=== PATIENT | female | born 1990 | race Caucasian/White ===

== ENCOUNTER 2021-01-02 01:53 | Day surgery (SDC) | payer OTHER, SELFPAY ==
[2020-12-31 15:07] VITALS: BMI 31.1
--- NOTE | 2021-01-01 13:26 | WPDANESEPPF ---
Anes - Initial Pre Proc Eval Procedure: Operation Date: 01/02/21 14:00 Proposed Procedures p Bilateral Laparoscopic Salpingectomy - Milad Casanova MD Date/Time: 01/01/21 13:26 Surgeon: Milad Casanova MD Pre Op Diagnosis: desires sterilization Patient Data Age: 30 Gender: F Height: 1.57 m Weight: 77.2 kg Allergies Allergy/AdvReac Type Severity Reaction Status Date / Time Sulfa (Sulfonamide Allergy Intermediate RASH AND Unverified 12/31/20 14:53 Antibiotics) SWELLING Home Medications Medication Instructions Recorded Confirmed Type clonazepam 0.5 mg PO PRN PRN 12/31/20 12/31/20 History lamotrigine 250 mg PO QAM 12/31/20 12/31/20 History trazodone 50 mg PO HS 12/31/20 12/31/20 History venlafaxine 75 mg PO TID 12/31/20 12/31/20 History Patient hx anesthesia problems: none Family hx anesthesia problems: none PMFSH Past Medical History Medical History (Updated 01/02/21 @ 09:49 by Milad Casanova MD) Bacterial vaginosis Bipolar disorder Cluster B personality disorder Depression History of HPV infection Surgical History Surgical History (Updated 01/02/21 @ 09:49 by Milad Casanova MD) History of 12/30/2017139.38 lbs.3 oz.MPrimary [facility]Full [facility] History of tonsillectomy Family History Family History (Updated 01/02/21 @ 09:50 by Milad Casanova MD) Other Depression Heart disease Hypertension Social History Social History (Updated 01/02/21 @ 09:50 by Milad Casanova MD) Smoking status: Never smoker Second hand tobacco smoke exposure: Yes Substance use: current Substance use type: marijuana Last use: 12/24/20 Living arrangements: with family Occupation/Education: occupation Gender identity (if verbalized by the patient): Female Sexual Orientation (if Verbalized by the Patient): Straight or Heterosexual Spiritual care concerns: No Agree to blood products: Yes Anes - Eval Final PreProcedure Day of Procedure 01/01/21 13:26 Patient weight: obese Heart: regular rate and rhythm Lungs: clear to auscultation and normal air movement Airway: Mallampati scale class II Neurological: alert and oriented Last oral intake: >/= 8 hours ASA classification: III Emergent: no Anesthetic plan: proceed Anesthesia type and monitoring: general ETT and standard monitoring Informed Consent: The patient's anesthetic plan and its attendant risks and benefits were discussed with the patient/family/POA. Questions were solicited and answers provided to the satisfaction of the patient/family/POA.
[2021-01-02] VITALS (10 sets, daily range): BP systolic 116–148; BP diastolic 69–85; PULSE 69–86; RESP 14–20; TEMP 36.8–36.9; O2SAT 99–100
--- NOTE | 2021-01-02 09:43 | PM.HPGS ---
History of Present Illness History of Present Illness Consent: Risks, benefits, and alternatives have been discussed and questions answered. Patient agrees to proceed with procedure. Chief complaint: desires sterilization Narrative: Silke Yo is a 30 year old female CF s/p primary C/s on 12/30/17 , history BIPOLAR and cluster b personality and HPV who presents for elective bilateral tubal sterilization laparoscopic bilateral complete salpingectomy under general anesthesia. She understands her condition procedure and risks involved. She understands the tubal sterilization is permanent irreversible she does not desire future fertility she understands the failure rate of 3 to 08/999 with increased risk of ectopic and its sequelae. She understands if she becomes in the future that she should seek emergency medical attention. And she understands the tubal sterilization does not protect her against sexually transmitted disease and continued condom use is recommended. She signed the [place] department of Public aid tubal consent forms and a copy is in the chart. Understands the surgical risks including but not limited to bleeding infection injury to bladder bowel pelvic vessels DVT pneumonia wound infections UTI the risk of anesthesia and she agrees to proceed. Review of Systems Review of Systems: All systems reviewed & are unremarkable except as noted in HPI and below Constitutional: Constitutional: Reports no additional constitutional complaints Eyes: Eyes: Reports no additional eye complaints ENT: Reports system reviewed and no additional complaints, except as documented Cardiovascular: Cardiovascular: Reports no additional cardiovascular complaints Respiratory: Respiratory: Reports no additional respiratory complaints Gastrointestinal: Gastrointestinal: Reports no additional gastrointestinal complaints Genitourinary: Genitourinary: Reports no additional female genitourinary complaints Musculoskeletal: Musculoskeletal: Reports no additional musculoskeletal complaints Integumentary/Breasts: Skin/Breast: Reports system reviewed and no additional complaints, except as docu Neurologic: Reports system reviewed and no additional complaints, except as documented Psychiatric: Psychiatric: Reports no additional psychiatric complaints Endocrine: Endocrine: Reports no additional endocrine complaints Hematologic/Lymphatic: Hematologic/Lymphatic: Reports no additional hematologic/lymphatic complaints Allergic/Immunologic: Allergic/Immunologic: Reports no additional allergic/immunologic complaints [facility] Past Medical History Medical History (Updated 01/02/21 @ 09:49 by Milad Caasnova MD) Bacterial vaginosis Bipolar disorder Cluster B personality disorder Depression History of HPV infection Surgical History Surgical History (Updated 01/02/21 @ 09:49 by Milad Casanova MD) History of 12/30/2017139.38 lbs.3 oz.MPrimary [facility]areanFull [facility]TP History of tonsillectomy Family History Family History (Updated 01/02/21 @ 09:50 by Milad Casanova MD) Other Depression Heart disease Hypertension Social History Social History (Updated 01/02/21 @ 09:50 by Milad Casanova MD) Smoking status: Never smoker Second hand tobacco smoke exposure: Yes Substance use: current Substance use type: marijuana Last use: 12/24/20 Living arrangements: with family Occupation/Education: occupation Gender identity (if verbalized by the patient): Female Sexual Orientation (if Verbalized by the Patient): Straight or Heterosexual Spiritual care concerns: No Agree to blood products: Yes Meds Home Medications and Allergies Home Medications Medication Instructions Recorded Confirmed Type clonazepam 0.5 mg PO PRN PRN 12/31/20 12/31/20 History lamotrigine 250 mg PO QAM 12/31/20 12/31/20 Hist
--- NOTE | 2021-01-02 09:45 | P.HPUP_ITS ---
History and Physical Update Update Date/Time: 01/02/21 09:45 History and Physical has been reviewed, including an updated exam of the patient. There are NO changes in the patient's condition. Risks, benefits, and alternatives have been discussed and questions answered. Patient agrees to proceed with procedure. Silke Yo is a 30 year old female CF s/p primary C/s on 12/30/17 , history BIPOLAR and cluster b personality and HPV who presents for elective b ilateral tubal sterilization laparoscopic bilateral complete salpingectomy under general anesthesia. She understands her condition procedure and risks involved. She understands the tubal sterilization is permanent irreversible she does not desire future fertility she understands the failure rate of 3 to 08/999 with increased risk of ectopic and its sequelae. She understands if she becomes in the future that she should seek emergency medical attention. And she understands the tubal sterilization does not protect her against sexually transmitted disease and continued condom use is recommended. She signed the [place] department of Public aid tubal consent forms and a copy is in the chart. Understands the surgical risks including but not limited to bleeding infection injury to bladder bowel pelvic vessels DVT pneumonia wound infections UTI the risk of anesthesia and she agrees to proceed.
[2021-01-02] MEDS: LACTATED RINGERS 1,000 ML 30 ML IV CONT ×2 (13:42→15:06)
[2021-01-02] MEDS: ACETAMINOPHEN 500 MG TABLET 1000 MG PO (13:42)
[2021-01-02] MEDS: KETOROLAC 15 MG/ML VIAL (*BKC) IV PUSH (13:42)
[2021-01-02] MEDS: ceFAZolin SODIUM 1 GM VIAL 2 GM IV PUSH (14:03)
[2021-01-02] MEDS: BUPIVACAINE HCL 0.25% PF 30 ML VIAL INFILTRATE (14:37)
--- NOTE | 2021-01-02 15:02 | W.PM.PROC2 ---
Procedure Note - Detailed Date of Procedure 01/02/21 Pre-op Diagnosis desires sterilization Post-op Diagnosis same (Desires sterilization) Procedure Performed Laparoscopic bilateral tubal sterilization with bilateral complete salpingectomy Surgeon Milad Casanvoa MD Manager In Training RN 1st assist and surgical territory manager Anesthesia general Indications Desires sterilization Findings Normal uterus tubes and ovaries Normal cul-de-sac anterior and posterior Normal bowel Hemostasis excellent VTE prevention SCD Antibiotic prophylaxis Ancef 2 g Counts correct Complications none Specimens pathology complete right and left fallopian tube Procedure performed in OR room 7. Patient extubated in the operating room taken recovery room stable condition Description of Procedure Informed consent obtained the [facility] [place] of Public aid tubal consent form was confirmed signed and in the chart. Patient was taken to the operating room where she was in the supine position given IV general anesthesia and then oral tracheal intubated without difficulty and then placed in the semilithotomy position in Joseph stirrups and prepped and draped in usual sterile fashion the bladder was emptied of urine after being draped the time-out was performed and confirmed. Infiltration of the umbilicus with coarse Marcaine plain 10 cc was followed by an infraumbilical incision and of 5 mm trocar and cannula were inserted through the umbilical incision with of with direct vision using grocery store bagger scope the abdomen was distended with 3.5 L of CO2 and then answer incision was made in right and left lower quadrant through which 5 mm trocars trocars were inserted without difficulty. In a bilateral sequential fashion endo coagulation of the proximal tube mesial salpinx arcuate vessel fimbriae ovarian vessels was then performed with heated cyst grasping forceps. Heated scissors were then used to excise the mesial salpinx the fimbriae ovarian vessels and the proximal tube with the complete salpinx right and left being removed and sent off to pathology. The proximal tube was endo coagulated the arcuate vessel was endo coagulated and the fimbriae ovarian vessels were endo coagulated hemostasis was excellent procedure was terminated the gas was removed the abdominal cavity the instruments removed the cannulas removed the incisions were suture approximated with 3-0 PDS deep in Dermabond to the skin Hulka tenaculum was removed which had been placed at the beginning of the case for uterine manipulation. And the patient tolerated procedure well was taken recovery room stable condition after being extubated in the OR. Implants None Estimated Blood Loss 0 IV Fluids 1,000 Urine Output 100 Drains No Packing No Pathology yes (Right and left fallopian tubes) Complications None Condition stable Disposition same day
[2021-01-02] MEDS: fentaNYL CITRATE INJ (*CRX) 100 MCG/2 ML VIAL 25 MCG IV PUSH (15:36)
[2021-01-02] MEDS: oxyCODONE HCL (*CRX) 5 MG TAB IR PO (16:24)
== END 2021-01-02 16:56 | disposition home or self-care (01) ==
PROVIDERS: Visit Provider Obstetrics & Gynecology
PROC: (CPT 49320; principal; 2021-01-02 14:00)
DX: Z30.2 Encounter for sterilization (principal); Z73.6 Limitation of activities due to disability; F31.9 Bipolar disorder, unspecified; F12.90 Cannabis use, unspecified, uncomplicated; E66.9 Obesity, unspecified; Z68.30 Body mass index [BMI] 30.0-30.9, adult
CPT/HCPCS: 58661; 88302; A9270; J0330; J0690; J1100; J1885; J2250; J2405; J2704; J2710; J3010; J7030; J7120; Q9968